=== PATIENT | male | born 1980 | race Caucasian/White ===

== ENCOUNTER → 2020-10-14 | Outpatient (CLI) | payer OTHER ==
[~2020-10-14] MED LIST: OMNIPAQUE 350 MG/ML, 100ML BOTTLE ONE
== END | disposition home or self-care (01) ==
LOC: CFH 12:37
PROVIDERS: ATTEND Hospitalist
DX: K40.90 Unilateral inguinal hernia, without obstruction or gangrene, not specified as recurrent (principal)
CPT/HCPCS: 74177; Q9967

== ENCOUNTER → 2020-10-20 | Outpatient (CLI) | payer OTHER | END | disposition home or self-care (01) | LOC: RAD 14:39 | PROVIDERS: ATTEND Surgery Vascular Surgery | DX: Z01.818 Encounter for other preprocedural examination (principal); I71.00 Dissection of unspecified site of aorta | CPT/HCPCS: 71275; 74174; Q9967 ==

== ENCOUNTER → 2021-01-30 | Outpatient (CLI) | payer OTHER | END | disposition home or self-care (01) | LOC: CFH 10:41 | PROVIDERS: ATTEND Surgery Vascular Surgery | DX: I71.02 Dissection of abdominal aorta (principal) | CPT/HCPCS: 74174; Q9967 ==